=== PATIENT | male | born 1980 | race Caucasian/White ===

== ENCOUNTER 2017-08-27 13:35 | Emergency (ER) | payer OTHER, BC ==
[~2017-08-27] VITALS: Ht 182.9 cm; Wt 78.0 kg
[2017-08-27] MEDS ORDERED: LISINOPRIL20 MG PO (13:43)
[2017-08-27] MEDS ORDERED: FLUTICASONE PRO16 GM NAS (13:44)
== END 2017-08-27 14:25 | disposition home or self-care (01) ==
LOC: ED 13:35
DX: S51.832A Puncture wound without foreign body of left forearm, initial encounter (principal); I10 Essential (primary) hypertension; Z79.899 Other long term (current) drug therapy; W46.0XXA Contact with hypodermic needle, initial encounter
CPT/HCPCS: 84460; 86703; 86707; 86803; 87350; 99283